=== PATIENT | female | born 1980 | race Caucasian/White ===

== ENCOUNTER 2017-05-01 23:42 | Emergency (ER) | payer SELFPAY ==
[~2017-05-01] VITALS: Ht 165.1 cm; Wt 91.4 kg
--- NOTE | 2017-05-01 23:39 | ER Report ---
History and Physical Time Seen By MD: 23:42 HPI/ROS CHIEF COMPLAINT: Suicide attempt, levothyroxin, overdose HISTORY OF PRESENT ILLNESS: 37-year-old female with a history of bipolar disorder, previous suicide attempt brought in by ambulance and police tonight on an emergency jail for suicidal attempt. She was drinking alcohol and became frustrated and upset with her life. She suffers from chronic pain from endometriosis is unable to afford health care to get it fixed. She took what she thought was her 's blood pressure medicine to kill her. Unfortunately, she grabbed the wrong bottle instead of lisinopril. She grabbed levothyroxin 0.075 mg she took approximately 15 pills. She vomited up blue fluid, likely from the blue levothyroxin pills. Patient on arrival to the ER, has grossly elevated blood pressure. She is expressing suicidal ideation to the chief science officer who detained her, as well as to myself. Patient denies any other ingestion. Patient has a previous [facility] admission from 06/2013 for suicidal ideation. She was bipolar and ran out of her medications. Please see that note for specific details. That note documents 2 previous suicide attempts back in [place]. REVIEW OF SYSTEMS: Respiratory: No cough, no dyspnea. Cardiovascular: No chest pain, no palpitations. Gastrointestinal: no abdominal pain. Musculoskeletal: No back pain. Allergies: Coded Allergies: Latex, Natural Rubber (Verified Allergy, Intermediate, EDEMA, 08/22/16) codeine (Verified Allergy, Intermediate, THRUSH, 08/22/16) lamotrigine (Verified Allergy, Intermediate, itchy throat, facial rash and swelling, 08/22/16) magnesium (Verified Allergy, Mild, swollen vagina, 08/22/16) Sulfa (Sulfonamide Antibiotics) (Verified Allergy, Unknown, 08/22/16) metronidazole (Verified Allergy, Unknown, 08/22/16) Uncoded Allergies: PLASTIC TAPE ADHESIVE (Adverse Reaction, Intermediate, SKIN SORES, 05/14/13) Home Meds No Active Prescriptions or Reported Meds Past Medical/Surgical History Patient has a past medical history of seizures, headaches, asthma, GERD, endometriosis, depression, anxiety, previous suicide attempt. Patient has a surgical history of a hysterectomy, tubal ligation, surgery for endometriosis. Reviewed Nurses Notes: Yes Old Medical Records Reviewed: Yes Hx Smoking: Yes Smoking Status: Current: Every Day Smoker, Light Tobacco Smoker Exposure to Second Hand Smoke?: Yes Hx Substance Use Disorder: No Hx Alcohol Use: Yes Constitutional Vital Sign - Last 24 Hours 05/01/17 05/01/17 05/01/17 05/01/17 23:46 23:50 23:53 23:57 Temp 99.2 Pulse 117 Resp 18 20 B/P (MAP) 135/105 (115) 135/105 130/86 (101) Pulse Ox 95 92 O2 Delivery Room Air 05/02/17 05/02/17 05/02/17 05/02/17 00:00 00:12 00:27 00:30 Pulse 115 104 Resp 37 22 B/P (MAP) 130/82 (98) 121/78 (92) Pulse Ox 97 92 05/02/17 05/02/17 05/02/17 05/02/17 00:35 00:50 01:20 01:25 Pulse 110 97 102 99 Resp 40 6 Pulse Ox 93 90 92 91 05/02/17 05/02/17 05/02/17 01:40 02:10 02:25 Pulse 100 103 108 Pulse Ox 91 90 88 Physical Exam Vital signs stable, tachycardic, elevated blood pressure, pulse ox normal, low-grade fever General Appearance: The patient is alert, has no immediate need for airway protection and no current signs of toxicity. Tearful and upset, withdrawn, angry Eyes: Pupils equal and round no injection. Respiratory: Chest is non tender, lungs are clear to auscultation. Cardiac: regular rate and rhythm Gastrointestinal: Abdomen is soft and non tender, no masses, bowel sounds normal. Musculoskeletal: Neck: Neck is supple and non tender. Extremities have full range of motion and are non tender. Skin: No rashes or lesions. DIFFERENTIAL DIAGNOSIS: After history and physical exam differential diagnosis was considered for depression including functional and major depression, situational depression, medication side effect, drugs and alcohol abuse. Medical Decision Making Data Points Result Diagram: 05/01/17 2340 05/01/17 2340 Laboratory Hematology Test 05/01/17 23:40 05/01/17 23:56 Red Blood Count 4.86 M/uL (4.17-5.56) Mean Corpuscular Volume 100.2 fL (80.0-96.0) Mean Corpuscular Hemoglobin 34.5 pg (26.0-33.0) Mean Corpuscular Hemoglobin Concent 34.4 g/dL (32.0-36.0) Red Cell Distribution Width 13.4 % (11.5-14.5) Mean Platelet Volume 9.2 fL (7.2-11.1) Neutrophils (%) (Auto) 31.5 % (39.4-72.5) Lymphocytes (%) (Auto) 60.9 % (17.6-49.6) Monocytes (%) (Auto) 5.4 % (4.1-12.4) Eosinophils (%) (Auto) 0.8 % (0.4-6.7) Basophils (%) (Auto) 1.4 % (0.3-1.4) Nucleated RBC Relative Count (auto) 0.1 /100WBC Neutrophils # (Auto) 3.8 K/uL (2.0-7.4) Lymphocytes # (Auto) 7.3 K/uL (1.3-3.6) Monocytes # (Auto) 0.6 K/uL (0.3-1.0) Eosinophils # (Auto) 0.1 K/uL (0.0-0.5) Basophils # (Auto) 0.2 K/uL (0.0-0.1) Nucleated RBC Absolute Count (auto) 0.01 K/uL Peripheral Blood Smear Yes Y/N Sodium Level 144 mmol/L (137-145) Potassium Level 2.8 mmol/L (3.5-5.0) Chloride Level 111 mmol/L (98-107) Carbon Dioxide Level 16 mmol/L (22-31) Blood Urea Nitrogen 4 mg/dl (7-18) Creatinine 0.80 mg/dl (0.52-1.04) Glomerular Filtration Rate Calc > 60.0 Random Glucose 130 mg/dl (75-110) Calcium Level 9.6 mg/dl (8.4-10.2) Magnesium Level 2.0 mg/dl (1.7-2.2) Total Bilirubin 0.4 mg/dl (0.2-1.3) Aspartate Amino Transf (AST/SGOT) 33 U/L (0-35) Alanine Aminotransferase (ALT/SGPT) 60 U/L (0-56) Alkaline Phosphatase 85 U/L (0-126) Total Protein 7.4 gm/dl (6.3-8.2) Albumin 4.4 g/dl (3.5-5.0) Thyroid Stimulating Hormone (TSH) 1.51 uIU/ml (0.46-4.68) Salicylates Level < 10 mg/L Salicylate Last Dose Date unk Acetaminophen Level < 10 ug/ml Serum Alcohol 145 mg/dl Urine Color Straw Urine Clarity Slightly-cloudy Urine pH 6.0 pH (4.8-9.5) Urine Specific [place] 1.001 Urine Protein Negative mg/dL (NEGATIVE) Urine Glucose (UA) Negative mg/dL (NEGATIVE) Urine Ketones Negative mg/dL (NEGATIVE) Urine Blood Small (NEGATIVE) Urine Nitrite Negative (NEGATIVE) Urine Bilirubin Negative (NEGATIVE) Urine Urobilinogen Negative mg/dL (0.2-1.9) Urine Leukocyte Esterase Trace (NEGATIVE) Urine RBC 1 /HPF (0-2/HPF) Urine WBC 1 /HPF (0-5/HPF) Urine Squamous Epithelial Cells Many /LPF (</=FEW) Urine Bacteria Negative /HPF (NONE-FEW) Urine Mucus None /HPF (NONE-FEW) Urine HCG, Qualitative Negative (NEGATIVE) Urine Opiates Screen Negative Urine Barbiturates Screen Negative Ur Tricyclic Antidepressants Screen Negative Urine Phencyclidine Screen Negative Urine Amphetamines Screen Negative Urine Benzodiazepines Screen Negative Urine Cocaine Screen Negative Urine Cannabinoids Screen Negative Chemistry Test 05/01/17 23:40 05/01/17 23:56 White Blood Count 12.0 k/uL (4.5-11.0) Red Blood Count 4.86 M/uL (4.17-5.56) Hemoglobin 16.8 g/dL (12.0-16.0) Hematocrit 48.7 % (34.0-47.0) Mean Corpuscular Volume 100.2 fL (80.0-96.0) Mean Corpuscular Hemoglobin 34.5 pg (26.0-33.0) Mean Corpuscular Hemoglobin Concent 34.4 g/dL (32.0-36.0) Red Cell Distribution Width 13.4 % (11.5-14.5) Platelet Count 257 K/uL (150-450) Mean Platelet Volume 9.2 fL (7.2-11.1) Neutrophils (%) (Auto) 31.5 % (39.4-72.5) Lymphocytes (%) (Auto) 60.9 % (17.6-49.6) Monocytes (%) (Auto) 5.4 % (4.1-12.4) Eosinophils (%) (Auto) 0.8 % (0.4-6.7) Basophils (%) (Auto) 1.4 % (0.3-1.4) Nucleated RBC Relative Count (auto) 0.1 /100WBC Neutrophils # (Auto) 3.8 K/uL (2.0-7.4) Lymphocytes # (Auto) 7.3 K/uL (1.3-3.6) Monocytes # (Auto) 0.6 K/uL (0.3-1.0) Eosinophils # (Auto) 0.1 K/uL (0.0-0.5) Basophils # (Auto) 0.2 K/uL (0.0-0.1) Nucleated RBC Absolute Count (auto) 0.01 K/uL Peripheral Blood Smear Yes Y/N Glomerular Filtration Rate Calc > 60.0 Calcium Level 9.6 mg/dl (8.4-10.2) Magnesium Level 2.0 mg/dl (1.7-2.2) Total Bilirubin 0.4 mg/dl (0.2-1.3) Aspartate Amino Transf (AST/SGOT) 33 U/L (0-35) Alanine Aminotransferase (ALT/SGPT) 60 U/L (0-56) Alkaline Phosphatase 85 U/L (0-126) Total Protein 7.4 gm/dl (6.3-8.2) Albumin 4.4 g/dl (3.5-5.0) Thyroid Stimulating Hormone (TSH) 1.51 uIU/ml (0.46-4.68) Salicylates Level < 10 mg/L Salicylate Last Dose Date unk Acetaminophen Level < 10 ug/ml Serum Alcohol 145 mg/dl Urine Color Straw Urine Clarity Slightly-cloudy Urine pH 6.0 pH (4.8-9.5) Urine Specific [place] 1.001 Urine Protein Negative mg/dL (NEGATIVE) Urine Glucose (UA) Negative mg/dL (NEGATIVE) Urine Ketones Negative mg/dL (NEGATIVE) Urine Blood Small (NEGATIVE) Urine Nitrite Negative (NEGATIVE) Urine Bilirubin Negative (NEGATIVE) Urine Urobilinogen Negative mg/dL (0.2-1.9) Urine Leukocyte Esterase Trace (NEGATIVE) Urine RBC 1 /HPF (0-2/HPF) Urine WBC 1 /HPF (0-5/HPF) Urine Squamous Epithelial Cells Many /LPF (</=FEW) Urine Bacteria Negative /HPF (NONE-FEW) Urine Mucus None /HPF (NONE-FEW) Urine HCG, Qualitative Negative (NEGATIVE) Urine Opiates Screen Negative Urine Barbiturates Screen Negative Ur Tricyclic Antidepressants Screen Negative Urine Phencyclidine Screen Negative Urine Amphetamines Screen Negative Urine Benzodiazepines Screen Negative Urine Cocaine Screen Negative Urine Cannabinoids Screen Negative Toxicology Test 05/01/17 23:40 05/01/17 23:56 Salicylates Level < 10 mg/L Salicylate Last Dose Date unk Acetaminophen Level < 10 ug/ml Serum Alcohol 145 mg/dl Urine Opiates Screen Negative Urine Barbiturates Screen Negative Ur Tricyclic Antidepressants Screen Negative Urine Phencyclidine Screen Negative Urine Amphetamines Screen Negative Urine Benzodiazepines Screen Negative Urine Cocaine Screen Negative Urine Cannabinoids Screen Negative Urinalysis Test 05/01/17 23:56 Urine Color Straw Urine Clarity Slightly-cloudy Urine pH 6.0 pH (4.8-9.5) Urine Specific [place] 1.001 Urine Protein Negative mg/dL (NEGATIVE) Urine Glucose (UA) Negative mg/dL (NEGATIVE) Urine Ketones Negative mg/dL (NEGATIVE) Urine Blood Small (NEGATIVE) Urine Nitrite Negative (NEGATIVE) Urine Bilirubin Negative (NEGATIVE) Urine Urobilinogen Negative mg/dL (0.2-1.9) Urine Leukocyte Esterase Trace (NEGATIVE) Urine RBC 1 /HPF (0-2/HPF) Urine WBC 1 /HPF (0-5/HPF) Urine Squamous Epithelial Cells Many /LPF (</=FEW) Urine Bacteria Negative /HPF (NONE-FEW) Urine Mucus None /HPF (NONE-FEW) Urine HCG, Qualitative Negative (NEGATIVE) EKG/Imaging EKG Interpretation 12 lead EK Rhythm: normal sinus rhythm [place]: normal QRS: normal ST segments: normal, diffuse T-wave flattening, laboratory studies show potassium at 2.9 ED Course/Re-evaluation Clinical Indication for ER IV: Hydration, IV Access ED Course Patient was admitted to an examination room. H&P was done. The differential diagnoses was considered. EMS brought the empty bottle of what she had taken. Poison center was contacted. Discussed treatment options for his levothyroxine overdose. Patient did not take a significant amount. She had vomiting of blue fluid, which were likely dissolved pill fragments. She'll likely experience some hyperthyroid symptoms in the next few days. Patient other valuation was unremarkable except for an elevated blood alcohol of 145. Patient was observed in the emergency department for approximately 2-1/2-3 hours. She was admitted to behavioral health services without any change in her vital signs. Patient ripped out her IV and left the emergency department and was brought back by mom for sent. She was administered sedation. A combination of Ativan 2 mg IM, Zyprexa 10 mg IM and Benadryl 50 motor grams IM 05/02/2017 2:04:35 am case discussed with Dr. Littlejohn psychiatrist on-call, who accepts the patient for admission to [facility] on an emergency jail Decision to Disposition Date: May 02, 2017 Decision to Disposition Time: 00:07 Date of Report: May 02, 2017 Patient Detained By: Law Enforcement Date Patient Detained: May 01, 2017 Time Patient Detained: 23:32 Date Long Term Expires: May 04, 2017 Time Long Term Expires: 23:32 Legal Status: Police Hold: No Legal Status: Relationship: Legal Status: Residence: [facility] Assessment Data Provided By: Law Enforcement, Other Source HPI/ROS: 37-year-old female brought in by police and EMS after a suicide attempt by taking an overdose of what she thought was blood pressure medication, but she grabbed her 's thyroid replacement medication. She took approximately 15-20 tablets of levothyroxine 0.075 mg and some alcohol. On arrival here. She is agitated, uncooperative and angry. Patient actually stormed from the ER and had to be brought back by law enforcement here. HEENT oral her IV. Poison control was contacted. They said this is not a lethal or dangerous dose of levothyroxine. She was monitored for several hours here in the emergency department without adverse symptoms. Current Dangerous Risk Assess: Current Suicide Ideation, Current Suicide Attempt Current Risk Summary: Patient is high risk. It emergency jail is upheld. She was medicated for her own safety. Depart Departure Latest Vital Signs Vital Signs Date Time Temp Pulse Resp B/P (MAP) Pulse Ox O2 Delivery O2 Flow Rate FiO2 05/02/17 02:25 108 88 05/02/17 00:50 6 05/02/17 00:30 121/78 (92) 05/01/17 23:50 99.2 Room Air Impression: Primary Impression: Suicide attempt Additional Impressions: Levothyroxine sodium overdose Bipolar disorder Alcohol intoxication Endometriosis Condition: Improved Disposition: XFER TO [facility] New Scripts No Active Prescriptions or Reported Meds Problem Qualifiers Additional Impressions: Levothyroxine sodium overdose Encounter type: initial encounter Injury intent: intentional self-harm Qualified Codes: T38.1X2A - Poisoning by thyroid hormones and substitutes, intentional self-harm, initial encounter Bipolar disorder Active/Remission status: remission status unspecified Qualified Codes: F31.9 - Bipolar disorder, unspecified Alcohol intoxication Complication of substance-induced condition: uncomplicated Qualified Codes: F10.920 - Alcohol use, unspecified with intoxication, uncomplicated DEJAH DUKE DO May 01, 2017 23:39
[~2017-05-01 23:42] MED LIST changes: -FOLI-68 PO; -NICO-218 TD; -OMEG-96 PO; -THIA100T2 PO
[2017-05-01] MEDS ORDERED: NS(*) 0.9% 1000 ML BAG 1,000 ML IV ONE (23:46)
[2017-05-02 00:08] LABS: PLATELET COUNT, AUTOMATED 257 K/uL (150-450)
[2017-05-02] MEDS: POTASSIUM CHL 20 MEQ TABCR PO ONE ×2 (00:10→01:15)
[2017-05-02] MEDS ORDERED: ONDANSETRON 4 MG/2 ML VIAL IVP ONE (00:10)
[2017-05-02 00:30] VITALS: BP 121/78
[2017-05-02] MEDS ORDERED: OLANZapine 10 MG VIAL IM ONLY ONE (01:04)
[2017-05-02] MEDS ORDERED: LORazepam 2 MG/ML VIAL ONE (01:05)
[2017-05-02] MEDS ORDERED: diphenhydrAMINE 50 MG/ML VIAL ONE (01:05)
[2017-05-02] MEDS ORDERED: WATER STERILE(*) 10 ML VIAL 10 ML ONE (01:06)
--- NOTE | 2017-05-02 01:26 | EKG ---
[place] [facility] [place] NAME: MARISABEL TORRES : [id number] MR: [id number] V: [id number] EXAM DATE: ORDERING PHYSICIAN: DEJAH DUKE TECHNOLOGIST: VIPUL Test Reason : OD Blood Pressure : / mmHG Vent. Rate : 094 BPM Atrial Rate : 094 BPM P-R Int : 168 ms QRS Dur : 090 ms QT Int : 366 ms P-R-T Axes : 034 017 051 degrees QTc Int : 457 ms Normal sinus rhythm Nonspecific T wave abnormality Abnormal ECG When compared with ECG of 22-AUG-2016 01:46, Previous ECG has undetermined rhythm, needs review Confirmed by NAWAF FIORE ([id number]) on 05/02/2017 6:39:00 AM Referred By: Confirmed By:NAWAF FIORE
[2017-05-03] MEDS ORDERED: FOLI-68 PO (09:24)
[2017-05-03] MEDS ORDERED: NICO-218 TD (09:25)
[2017-05-03] MEDS ORDERED: MULT-1335 PO (09:25)
[2017-05-03] MEDS ORDERED: THIA100T2 PO (09:26)
[2017-05-03] MEDS ORDERED: OMEG-96 PO (09:26)
[2017-05-03] MEDS ORDERED: QUET50TA21 PO (13:20)
== END 2017-05-02 02:30 ==
LOC: ER 23:42
DX: T38.1X2A Poisoning by thyroid hormones and substitutes, intentional self-harm, initial encounter (principal); F31.9 Bipolar disorder, unspecified; F10.920 Alcohol use, unspecified with intoxication, uncomplicated; N80.9 Endometriosis, unspecified; F32.9 Major depressive disorder, single episode, unspecified; F17.200 Nicotine dependence, unspecified, uncomplicated
CPT/HCPCS: 80305; 80320; 80329; 81001; 81025; 83735; 84443; 85025; 93005; 96361; 96372; 96374; 99285; J1200; J2060; J3490; J7030; 82040; 82247; 82310; 82374; 82435; 82565; 82947; 84075; 84132; 84155; 84295; 84450; 84460; 84520

== ENCOUNTER → 2017-05-01 | Outpatient (CLI) | payer SELFPAY ==
[~2017-05-01] MED LIST: CIPR-344 PO; DIA5 PO; ENOX100D5 SQ; FOLI-68 PO; HYDR-4309 PO; IBUP200C71 PO; IBUP600T22 PO; LAMO25TA72 PO; LOR1 PO; LOR5/325 PO; LORA-1458 PO; MULT-1335 PO; NICO-218 TD; OMEG-96 PO; ONDA4TAB PO; PRED20TA6 PO; QUET50TA21 PO; RANI-324 PO; THIA100T2 PO; TRAZ-156 PO; WARF-18 PO
== END ==
LOC: AMB 23:12
PROVIDERS: ATTEND Nurse Practitioner
DX: T50.992A Poisoning by other drugs, medicaments and biological substances, intentional self-harm, initial encounter (principal)
CPT/HCPCS: A0425; A0427

== ENCOUNTER 2017-05-02 02:26 | Inpatient (IN) | payer SELFPAY ==
[~2017-05-02] VITALS: Ht 165.1 cm; Wt 91.4 kg
[2017-05-02] VITALS (7 sets, daily range): BP systolic 92–130; BP diastolic 50–82
[2017-05-02 06:23] LABS: PLATELET COUNT, AUTOMATED 237 K/uL (150-450)
--- NOTE | 2017-05-02 08:31 | BHS - Psychiatric Evaluation ---
ER - Title 25 MHE Evaluation Title 25 Evaluation Patient Detained By: Physician (Dr Pablo), Law Enforcement (Israel Wilson) Referral Source: Professional: Law Enforcement and ER Date Patient Detained: May 01, 2017 Time Patient Detained: 23:32 Date Assisted Expires: May 04, 2017 Time Assisted Expires: 23:32 Legal Status: Police Hold: No Legal Status: Residence: [place] Resident, State Resident Assessment Data Provided By: Law Enforcement, Other Source HPI/ROS: Per Dr Pablo, "37-year-old female with a history of bipolar disorder, previous suicide attempt brought in by ambulance and police tonight on an emergency longterm for suicidal attempt. She was drinking alcohol and became frustrated and upset with her life. She suffers from chronic pain from endometriosis is unable to afford health care to get it fixed. She took what she thought was her 's blood pressure medicine to kill her. Unfortunately, she grabbed the wrong bottle instead of lisinopril. She grabbed levothyroxin 0.075 mg she took approximately 15 pills. She vomited up blue fluid, likely from the blue levothyroxin pills. Patient on arrival to the ER, has grossly elevated blood pressure. She is expressing suicidal ideation to the vice squad police officer who detained her, as well as to myself. Patient denies any other ingestion. Patient has a previous [facility] admission from 06/2013 for suicidal ideation. She was bipolar and ran out of her medications. Please see that note for specific details. That note documents 2 previous suicide attempts back in [place]." Admit due to SI or Attempt: Yes Suicide Plan: Has Plan with Access Alcohol or Drugs Involved: Yes (Needs to stay at the hospital for safe withdrawal) Is Patient Info Reliable: No Is Collateral Info Reliable: Yes Current Home Psych Meds: Unknown at this time. Mental Status Exam General Appearance: No Good Eye Contact Speech: Other (Patient very sleepy, difficult to learn how she tried to take her life and why. ) Mood: Other (Patient very sleepy. Patient is also irritable, and wishes to be left alone to sleep.) Cognition: Alert & Oriented-Person, Alert & Oriented-Place Memory: Immediate Insight Judgment: Poor Sleep: Hypersomnia Hallucinations: Denies Delusions: Denies Current Risk & History Current Dangerous Risk Assessm: Current Suicide Ideation (Denies this now, says she did not tell her husbandshe tried to kill herself. ) Past Dangerous Risk Assessm: Suicide Ideation-last 6mo (Denies) Previous Suicide Attempt: Past - Low Lethality Number of Attempts/Description Patient hospitalized here and it is reported she tried to kill herself in [place] more than once. Previous Psychiatric Illness: Yes Previous Diagnosis/Treatment: Bipolar Mood and Depression Previous Psychiatric Treatment: Yes Previous Treatment Description Bipolar Mood, Current Depression Risk Assessment & Disposition Evaluated Risk Assessment: Risk assessment is high based on multiple attempts in patient history and poor social support. She says she does not see a therapist for her mental health. Impression: Primary Impression: Bipolar depression Additional Impression: Alcohol intoxication Meets Mental Illness Req.: Yes Meets Dangerousness Req.: Yes Emergency Assisted to be: Upheld Decision Comment: Patient is unsafe, and has poor judgement. Patient became intoxicated and tried to kill herself by using her husbands medication. This is not the first time she has had suicidal behaviors. It seems patient needs support, and she reports she does not feel supported by anyone. A safe environment while she is observed and cared for is necessary to help patient be connected to resources to keep her well and prevent another or another suicide attempt. Date of Decision: May 02, 2017 Time of Decision: 08:42 Patient is Medically Stable at: Yes Disposition: [facility] Problem Qualifiers CORETTA RIVAS LPC May 02, 2017 08:31
[2017-05-02] MEDS: THIAMINE HCL 100 MG TAB PO SCH (08:59)
[2017-05-02] MEDS: FOLIC ACID 1 MG TAB PO SCH (08:59)
[2017-05-02] MEDS: MULTIVITAMINS TAB PO SCH (08:59)
[2017-05-02] MEDS ORDERED: NICOTINE 14 MG/24 HR PATCH TD SCH (18:05)
[2017-05-02] MEDS ORDERED: NICOTINE 21 MG/24 HR PATCH TD ONE (18:27)
[2017-05-02] MEDS ORDERED: PATCH REMOVAL 1 EA TP SCH (21:00)
[2017-05-03 06:32] VITALS: BP 125/78
[2017-05-03] MEDS: MULTIVITAMINS TAB PO SCH (08:09)
[2017-05-03] MEDS: THIAMINE HCL 100 MG TAB PO SCH (08:09)
[2017-05-03] MEDS: FOLIC ACID 1 MG TAB PO SCH (08:09)
[2017-05-03] MEDS: NICOTINE 21 MG/24 HR PATCH TD SCH ×2 (08:12→09:00)
[2017-05-03 09:00] VITALS: BP 120/77
[2017-05-03] MEDS ORDERED: FOLI-68 PO (09:24)
[2017-05-03] MEDS ORDERED: MULT-1335 PO (09:25)
[2017-05-03] MEDS ORDERED: NICO-218 TD (09:25)
[2017-05-03] MEDS ORDERED: OMEG-96 PO (09:26)
[2017-05-03] MEDS ORDERED: THIA100T2 PO (09:26)
[2017-05-03] MEDS ORDERED: QUET50TA21 PO (13:20)
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
== END 2017-05-03 17:06 | disposition home or self-care (01) | DRG 897 ==
LOC: BHS 02:26
PROVIDERS: ADMIT Psychiatry & Neurology Psychiatry; ATTEND Psychiatry & Neurology Psychiatry
DX: F10.24 Alcohol dependence with alcohol-induced mood disorder (principal); F31.81 Bipolar II disorder; R45.851 Suicidal ideations; T38.1X2A Poisoning by thyroid hormones and substitutes, intentional self-harm, initial encounter; K21.9 Gastro-esophageal reflux disease without esophagitis; G40.909 Epilepsy, unspecified, not intractable, without status epilepticus; N80.9 Endometriosis, unspecified; F17.210 Nicotine dependence, cigarettes, uncomplicated; F15.11 Other stimulant abuse, in remission; F98.8 Other specified behavioral and emotional disorders with onset usually occurring in childhood and adolescence; Y90.6 Blood alcohol level of 120-199 mg/100 ml; Z91.5 Personal history of self-harm; Z63.0 Problems in relationship with spouse or partner; Z81.1 Family history of alcohol abuse and dependence; Z81.8 Family history of other mental and behavioral disorders; Z88.2 Allergy status to sulfonamides; Z88.8 Allergy status to other drugs, medicaments and biological substances; Z90.711 Acquired absence of uterus with remaining cervical stump
CPT/HCPCS: 36415; 82040; 82247; 82310; 82374; 82435; 82565; 82947; 83735; 84075; 84132; 84155; 84295; 84450; 84460; 84520; 85025; 90853